=== PATIENT | male | born 1945 | race American Indian/Alaskan Native ===

== ENCOUNTER 2018-02-16 19:10 | Emergency (ER) | payer MEDICARE ==
[2018-02-16] MEDS ORDERED: ZOFRAN ONE (19:51)
[2018-02-16] MEDS ORDERED: MORPHINE ONE (19:51)
[2018-02-16] MEDS ORDERED: MORPHINE IV ONE (20:14)
[2018-02-16] MEDS ORDERED: ZOFRAN IV ONE (20:14)
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
--- NOTE | 2018-02-16 21:01 | Cat Scan Report ---
FINAL REPORT PROCEDURE: CT CERVICAL SPINE WO CON TECHNIQUE: Computerized tomography of the cervical spine was performed from the skull base to T1 without contrast material. HISTORY: fall COMPARISON: No prior studies are available for comparison. FINDINGS: Rule alignment and height are within normal limits. An acute fracture is not identified.. C1-2: Not included in the study. C2-3: No significant abnormality. C3-4: Moderate degree left neural foraminal stenosis is noted secondary to uncovertebral degenerative changes.. C4-5: Moderate degree right neural foraminal stenosis is noted secondary to uncovertebral degenerative changes.. C5-6: Mild degree bilateral neural foraminal stenosis is noted secondary to facet arthropathy.. C6-7: Moderate to severe degree of bilateral neural foraminal stenosis is noted secondary to uncovertebral degenerative changes. Mild degree broad-based disc osteophyte complex is noted without significant spinal canal compromise.. C7-T1: Bilateral facet arthropathy is noted with the mild to moderate degree left neural foraminal stenosis.. Other: No additional findings. IMPRESSION: C1-C2 is not included in the study. Additional CT imaging to include C1-C2 is recommended. Otherwise no acute fracture Multilevel cervical spondylosis as described above. .
--- NOTE | 2018-02-16 21:03 | Cat Scan Report ---
FINAL REPORT PROCEDURE: CT HEAD/BRAIN WO CON TECHNIQUE: Computerized tomography of the head was performed without contrast material. HISTORY: fall COMPARISON: No prior studies are available for comparison. FINDINGS: Skull and scalp: Mild degree left parietal scalp swelling is noted.. Paranasal sinuses: Normal. Ventricles and subarachnoid spaces: Are prominent consistent with cerebral atrophy appropriate for patient's age.. Cerebrum: No evidence of hemorrhage, acute infarction or mass . Cerebellum and brainstem: No evidence of hemorrhage, acute infarction or mass. Comments: None. IMPRESSION: No acute intracranial abnormality
--- NOTE | 2018-02-16 21:09 | XRay Report ---
FINAL REPORT PROCEDURE: XR SHOULDER 2+V LT TECHNIQUE: LEFT shoulder radiographs including AP views in internal and external rotation and abduction. CPT 29349 HISTORY: fall COMPARISON: No prior studies are available for comparison. FINDINGS: Fracture (s) and/or Dislocation(s): None . Joint space(s): Normal . Soft tissues: Normal . Bone mineralization: Normal . Foreign bodies: None . IMPRESSION: Normal Examination
[2018-02-16 23:33] VITALS: BP 149/77
== END 2018-02-16 23:33 | disposition home or self-care (01) ==
LOC: ED 19:10
DX: I10 Essential (primary) hypertension (principal); E11.9 Type 2 diabetes mellitus without complications; R51 Headache; M54.2 Cervicalgia
CPT/HCPCS: 70450; 72125; 73030; 93005; 93010; 96374; 96375; 99284; J2270; J2405